=== PATIENT | male | born 1985 | race Caucasian/White ===

== ENCOUNTER 2022-12-11 12:03 | Inpatient (IN) | payer MEDICAID ==
[~2022-12-11] VITALS: Ht 162.6 cm; Wt 91.6 kg
[~2022-12-11 12:03] MED LIST: ACET-8905 PO
[2022-12-11 12:10] VITALS: BP 92/48
[2022-12-11 12:51] LABS: BASOPHILS # (AUTO) 0.2 K/uL (0.00-0.22); BASOPHILS % (AUTO) 1.3 % (0.0-2.0); EOSINOPHILS # (AUTO) 0.2 K/uL (0-0.4); EOSINOPHILS % (AUTO) 1.5 % (0.0-4.0); HEMATOCRIT 38.7 % (36-52); HEMOGLOBIN 13.3 g/dL (12.0-18.0); LYMPHOCYTES # (AUTO) 0.6 K/uL (2.0-11.5); LYMPHOCYTES % (AUTO) 3.7 % (20.5-51.1); MEAN CORPUSCULAR HEMOGLOBIN 37 pg (27-31); MEAN CORPUSCULAR HGB CONC 34 g/dL (33-37); MEAN CORPUSCULAR VOLUME 106.6 fL (80-94); MONOCYTES # (AUTO) 1.1 K/uL (0.8-1.0); MONOCYTES % (AUTO) 7.1 % (1.7-9.3); NEUTROPHILS # (AUTO) 13.8 K/uL (1.8-7.7); NEUTROPHILS % (AUTO) 86.4 % (42.2-75.2); PLATELET COUNT (AUTO) 75 K/uL (140-450); RED BLOOD CELL COUNT(AUTO) 3.63 MIL/uL (4.20-6.10)
[2022-12-11 13:03] LABS: ALBUMIN 1.6 g/dL (3.4-5.0); ANION GAP 14.2 (8-16); CARBON DIOXIDE 21.6 mmol/L (21-32); CREATININE 1.3 mg/dL (0.6-1.3); TOTAL BILIRUBIN 23.2 mg/dL (0.0-1.0)
[2022-12-11 13:07] LABS: POTASSIUM 2.8 mmol/L (3.5-5.1)
[2022-12-11] MEDS ORDERED: NACL 0.9% 1,000 ML IV ONE ×2 (13:10→16:40)
[2022-12-11 13:15] LABS: WHITE BLOOD COUNT (AUTO) 15.9 K/uL (4.8-10.8)
--- NOTE | 2022-12-11 13:45 | NUR ---
a/o times 4, nad, denies any pain, sr on cm, o2 sat 99% ra, sr p times 2
[2022-12-11 14:19] LABS: BILIRUBIN,URINE LARGE (NEGATIVE); BLOOD, URINE TRACE-I (NEGATIVE); LEUKOCYTE ESTERASE ,URINE NEGATIVE (NEGATIVE); NITRITE, URINE NEGATIVE (NEGATIVE); UGLUCOSE 1+ (NEGATIVE)
[2022-12-11 14:52] LABS: MAGNESIUM 2.2 mg/dL (1.8-2.4); PHOSPHORUS 4.5 mg/dL (2.5-4.9)
[2022-12-11] MEDS ORDERED: KCL 20 MEQ/WATER INJ PREMIX 100 ML IV ONE (14:55)
[2022-12-11] MEDS ORDERED: POTASSIUM CHLORIDE 10 MEQ TABER PO ONE (14:55)
--- NOTE | 2022-12-11 15:36 | NUR ---
no ac distress, denies any pain, sr on cm, o2 sat 99% ra, sr up times 2
[2022-12-11 16:26] LABS: COLOR,URINE DARK YELLOW (YELLOW); RBC,URINE 0-5 /HPF (0-5); WBC,URINE 0-5 /HPF (0-5); YEAST,URINE None Seen /HPF (None Seen)
[2022-12-11 16:27] LABS: FINE GRANULAR CASTS,URINE 0-10 /LPF (None Seen); TRICHOMONAS,URINE None Seen /HPF (None Seen)
[2022-12-11 16:28] LABS: APPEARANCE,URINE CLOUDY (CLEAR)
[2022-12-11 17:20] VITALS: BP 132/54
--- NOTE | 2022-12-11 17:20 | NUR ---
RECEIVED PATIENT FROM ER NURSE VIA MERE. PT ADMITTED FOR LIVER CIRRHOSIS. AOX4, ABLE TO MAKE NEEDS KNOWN. ON ROOM AIR AND NO DISTRESS NOTED. SCLERA IS YELLOW. SKIN IS WARM, DRY, JAUNDICE AND INTACT. IV SITE ON LAC 20G SALINE LOCKED. DENIES PAIN AT THE MOMENT. AMBULATORY. PLAN OF CARE DISCUSSED. SAFETY PRECAUTIONS IN PLACE. BED IN LOW POSITION. CALL LIGHT WITHIN REACH. WILL CONTINUE TO MONITOR.
--- NOTE | 2022-12-11 19:25 | NUR ---
RECEIVED PT FROM AM NURSE FOR CONTINUITY OF CARE.PT IS STABLE
--- NOTE | 2022-12-11 19:29 | NUR ---
ENDORSED TO MEDIA SERVICES DIRECTOR NURSE FOR CONTINUITY OF CARE. PT IS STABLE.
[2022-12-11 20:00] VITALS: BP 133/53
[2022-12-11 22:11] LABS: ALBUMIN 1.6 g/dL (3.4-5.0); ANION GAP 11.1 (8-16); CARBON DIOXIDE 24.4 mmol/L (21-32); CREATININE 1.3 mg/dL (0.6-1.3); POTASSIUM 3.5 mmol/L (3.5-5.1); TOTAL BILIRUBIN 20.6 mg/dL (0.0-1.0)
[2022-12-12] VITALS: BP 129/58
--- NOTE | 2022-12-12 01:00 | NUR ---
PATIENT ASLEEP, NO DISTRESS NOTED
[2022-12-12 04:00] VITALS: BP 124/46
--- NOTE | 2022-12-12 07:30 | NUR ---
RECIEVED PATIENT FROM MILK TANKER DRIVER NURSE.PATIENT IS ALERT ,ORIENTED.VITALS ARE STABLE,ALL SAFETY MEASURES IN PLACE.WILL CONTINUE TO MONITOR.
[2022-12-12 08:00] VITALS: BP 139/66
[2022-12-12 10:15] LABS: ALBUMIN 1.6 g/dL (3.4-5.0); ANION GAP 11.6 (8-16); CARBON DIOXIDE 23.9 mmol/L (21-32); CREATININE 1.4 mg/dL (0.6-1.3); POTASSIUM 3.5 mmol/L (3.5-5.1); TOTAL BILIRUBIN 20.4 mg/dL (0.0-1.0)
[2022-12-12 12:00] VITALS: BP 113/42
[2022-12-12 14:46] LABS: BILIRUBIN,DIRECT 12.9 mg/dL (0.0-0.3); TOTAL BILIRUBIN 20.4 mg/dL (0.0-1.0)
[2022-12-12] MEDS: NACL 0.9% 500 ML IV SCH ×2 (14:57→21:30)
--- NOTE | 2022-12-12 15:40 | NUR ---
NOTED TEMPERATURE 99.2,PATIENT COMPLAINS CHILLS.WILL MONITOR FURTHER.
[2022-12-12 16:00] VITALS: BP 115/46
--- NOTE | 2022-12-12 19:30 | NUR ---
endorsed the patient to shift production supervisor nurse,for continuity of care.
--- NOTE | 2022-12-12 19:30 | NUR ---
RECEIVED PT ON BED SLEEPING. PT IS ON STABLE CONDITION, RESPONSIVE ON STIMULI. IV FLUID IS INFUSING WELL AT 75 ML/HR. IV SITE ALIRIO LAC 20G. PT IS ON STANDARD ISOLATION.
[2022-12-12 20:00] VITALS: BP 117/44
[2022-12-13] VITALS: BP 108/45
--- NOTE | 2022-12-13 00:15 | NUR ---
PT IS SLEEPING WELL.
[2022-12-13 04:00] VITALS: BP 132/54
--- NOTE | 2022-12-13 04:00 | NUR ---
PT ABLE TO COLLECT URINE FOR LAB.
[2022-12-13] MEDS: NACL 0.9% 500 ML IV SCH ×2 (04:20→10:50)
--- NOTE | 2022-12-13 04:30 | NUR ---
PT DENIES OF ANY PAIN OR DISCOMFORT.
--- NOTE | 2022-12-13 05:00 | NUR ---
PT IS ASLEEP.
[2022-12-13 05:23] LABS: BASOPHILS # (AUTO) 0.1 K/uL (0.00-0.22); BASOPHILS % (AUTO) 0.6 % (0.0-2.0); EOSINOPHILS # (AUTO) 0.2 K/uL (0-0.4); EOSINOPHILS % (AUTO) 2.4 % (0.0-4.0); HEMATOCRIT 39.1 % (36-52); HEMOGLOBIN 13.5 g/dL (12.0-18.0); LYMPHOCYTES # (AUTO) 0.4 K/uL (2.0-11.5); LYMPHOCYTES % (AUTO) 4.5 % (20.5-51.1); MEAN CORPUSCULAR HEMOGLOBIN 37 pg (27-31); MEAN CORPUSCULAR HGB CONC 35 g/dL (33-37); MEAN CORPUSCULAR VOLUME 107.3 fL (80-94); MONOCYTES # (AUTO) 0.5 K/uL (0.8-1.0); MONOCYTES % (AUTO) 5.1 % (1.7-9.3); NEUTROPHILS # (AUTO) 8.6 K/uL (1.8-7.7); NEUTROPHILS % (AUTO) 87.4 % (42.2-75.2); PLATELET COUNT (AUTO) 69 K/uL (140-450); RED BLOOD CELL COUNT(AUTO) 3.64 MIL/uL (4.20-6.10); RED CELL DISTRIBUTION WIDTH 17.6 % (11.6-13.7); WHITE BLOOD COUNT (AUTO) 9.9 K/uL (4.8-10.8)
[2022-12-13 05:56] LABS: CARBON DIOXIDE 22.6 mmol/L (21-32); CREATININE 1.5 mg/dL (0.6-1.3); POTASSIUM 3.6 mmol/L (3.5-5.1)
--- NOTE | 2022-12-13 07:15 | NUR ---
PT IS ON STABLE CONDITION. PT DENIES OF PAIN OR DISCOMFORT. ALL SAFETY MEASURES ARE IN PLACE. ENDORSED TO DAY SHIFT NURSE FOR CONTINUITY OF CARE.
--- NOTE | 2022-12-13 09:09 | NUR ---
PATIENT HAS BEEN SCREENED AND CATEGORIZED MODERATE NUTRITION RISK. PATIENT WILL BE SEEN WITHIN 3-5 DAYS OF ADMISSION. REVIEWED BY DARYL LARA RD
[2022-12-13 11:54] VITALS: BP 133/57
[2022-12-13] MEDS ORDERED: ALBUMIN HUMAN 25% 100 ML IV SCH (13:00)
[2022-12-13] MEDS: OCTREOTIDE ACETATE 100 MCG/ML VIAL SUBQ SCH ×2 (13:45→17:01)
[2022-12-13] MEDS: POTASSIUM CHL 20MEQ/D5-NS 1,000 ML IV SCH (14:30)
[2022-12-13 16:00] VITALS: BP 133/58
--- NOTE | 2022-12-13 16:00 | NUR ---
DC PLANNING ASSESSMENT COMPLETE SEE ASSESSMENT FOR DETAILS PER PT, DC PLAN IS TO RETURN HOME WITH SISTER PROVIDING TRANSPORTATION WHEN MEDICALLY STABLE. Addendum: 12/13/22 at 1601 by Lilian Ivy SS Amended: Links added.
[2022-12-13 18:22] LABS: CREATININE,URINE RANDOM 76 mg/dL (30-125); URINE SODIUM, RANDOM 4 mmol/l (40-220)
--- NOTE | 2022-12-13 19:23 | NUR ---
RECEIVED PT IN BED AWAKE,ALERT AND ORIENTED X 4. DENIES PAIN. DENIES SHORTNESS OF BREATH. SKIN WARM AND DRY TO TOUCH. BED IN THE LOWEST AND LOCKED POSITION FOR SAFETY, CALL LIGHT IN REACH. ENCOURAGED TO CALL IF ASSISTANCE IS NEEDED, PT VERBALLY AGREED.
[2022-12-13 20:00] VITALS: BP 121/59
[2022-12-13] MEDS: LACTULOSE 20 GM/30 ML UDC PO SCH (20:10)
[2022-12-13 23:48] LABS: CREATININE,URINE RANDOM 78 mg/dL (30-125); URINE SODIUM, RANDOM 3 mmol/l (40-220)
[2022-12-13 23:50] LABS: TOTAL PROTEIN URINE 30.3 MG/DL
[2022-12-14] VITALS: BP 129/55
--- NOTE | 2022-12-14 01:51 | NUR ---
PATIENT IS ASLEEP. BREATHING EVEN AND UNLABORED. CALL LIGHT IN REACH.
[2022-12-14 04:00] VITALS: BP 120/51
[2022-12-14] MEDS: POTASSIUM CHL 20MEQ/D5-NS 1,000 ML IV SCH (05:57)
--- NOTE | 2022-12-14 06:17 | NUR ---
PATIENT IS ASLEEP. NO DISTRESS NOTED. ALL NEEDS ATTENDED TO. SAFETY PRECAUTIONS MAINTAINED DURING THE SHIFT, CALL LIGHT REMAINS WITHIN REACH.
[2022-12-14 06:20] LABS: HEPATITIS A ANTIBODY IGM Negative (Negative); HEPATITIS B CORE AB TOTAL Negative (Negative); HEPATITIS B SURFACE ANTIBODY Reactive (.); HEPATITIS B SURFACE ANTIGEN Negative (Negative)
[2022-12-14 07:04] LABS: HEMATOCRIT 34.1 % (36-52); HEMOGLOBIN 11.9 g/dL (12.0-18.0); MEAN CORPUSCULAR HEMOGLOBIN 38 pg (27-31); MEAN CORPUSCULAR HGB CONC 35 g/dL (33-37); MEAN CORPUSCULAR VOLUME 107.8 fL (80-94); PLATELET COUNT (AUTO) 48 K/uL (140-450); RED BLOOD CELL COUNT(AUTO) 3.17 MIL/uL (4.20-6.10); RED CELL DISTRIBUTION WIDTH 17.7 % (11.6-13.7); WHITE BLOOD COUNT (AUTO) 11.4 K/uL (4.8-10.8)
[2022-12-14 07:08] LABS: ANION GAP 11.7 (8-16); CARBON DIOXIDE 23.1 mmol/L (21-32); CREATININE 1.7 mg/dL (0.6-1.3); POTASSIUM 3.8 mmol/L (3.5-5.1)
[2022-12-14 07:50] LABS: EOSINOPHILS % (MANUAL) 1 % (0-4); LYMPHOCYTES % (MANUAL) 4 % (20-46); MONOCYTES % (MANUAL) 12 % (5-12)
[2022-12-14 08:00] VITALS: BP 137/63
[2022-12-14] MEDS: LACTULOSE 20 GM/30 ML UDC PO SCH (08:57)
[2022-12-14] MEDS: OCTREOTIDE ACETATE 100 MCG/ML VIAL SUBQ SCH ×2 (08:58→13:00)
[2022-12-14] MEDS ORDERED: THIAMINE 100 MG TAB PO SCH (09:00)
[2022-12-14] MEDS ORDERED: MULTIVITAMIN 1 TAB PO SCH (09:00)
[2022-12-14] MEDS ORDERED: prednisoLONE 15 MG/5 ML UDC PO SCH (09:00)
[2022-12-14] MEDS ORDERED: AMOX-999 PO (10:18)
[2022-12-14] MEDS ORDERED: FURO-570 PO (10:21)
[2022-12-14] MEDS ORDERED: SPIR25TA PO (10:21)
[2022-12-14 12:00] VITALS: BP 158/72
[2022-12-14] MEDS ORDERED: PIPERACILLIN/TAZOBACTAM 3.375 GM in DEXTROSE 5% 50 ML IV SCH (12:00)
[2022-12-14 13:59] VITALS: BP 120/51
--- NOTE | 2022-12-14 15:10 | NUR ---
PATIENT DISCHARGED HOME. PERSONAL BELONGINGS SENT HOME WITH PATIENT. STABLE UPON DISCHARGE.
[2022-12-15] MEDS ORDERED: FUROSEMIDE 40 MG TAB PO SCH (09:00)
[2022-12-15] MEDS ORDERED: SPIRONOLACTONE 25 MG TAB PO SCH (09:00)
== END 2022-12-14 14:45 | disposition home or self-care (01) | DRG 280 ==
LOC: MED 12:03 → MTU 16:43
PROVIDERS: ADMIT Family Medicine; ATTEND Family Medicine
DX: K70.31 Alcoholic cirrhosis of liver with ascites (principal); N17.0 Acute kidney failure with tubular necrosis; K76.7 Hepatorenal syndrome; E43 Unspecified severe protein-calorie malnutrition; K76.6 Portal hypertension; E83.51 Hypocalcemia; E87.1 Hypo-osmolality and hyponatremia; E87.6 Hypokalemia; Z20.822 Contact with and (suspected) exposure to COVID-19; R74.01 Elevation of levels of liver transaminase levels; Z79.891 Long term (current) use of opiate analgesic; Z79.1 Long term (current) use of non-steroidal anti-inflammatories (NSAID); Z79.899 Other long term (current) drug therapy; Z68.34 Body mass index [BMI] 34.0-34.9, adult; D72.825 Bandemia
CPT/HCPCS: 36415; 76705; 80048; 80053; 81001; 82140; 82247; 82248; 82436; 82570; 83036; 83690; 83735; 84100; 84156; 84300; 85025; 86704; 86706; 86708; 86709; 86803; 87081; 87086; 87340; 96361; 96365; 99291; J2354; J2543; J3480; J7060; J7510; P9046; Q0092; Q9967

== ENCOUNTER 2022-12-16 16:24 | Inpatient (IN) | payer MEDICAID ==
[~2022-12-16] VITALS: Ht 162.6 cm; Wt 89.8 kg
[~2022-12-16 16:24] MED LIST changes: -ACET-8905 PO; +AMOX-999 PO; +FURO-570 PO; +SPIR25TA PO
[2022-12-16 16:44] VITALS: BP 116/58
--- NOTE | 2022-12-16 16:44 | NUR ---
37 y/o male bib self, c/o abd distention, body pain, restless, unable to sleep and sob for "months". pt a&ox4, ambulates with steady gait, setswana speaking. skin jaudice/warm/dry. abd sounds x4, round/firm/distention. pmh: jaundice nka med: denies
--- NOTE | 2022-12-16 17:37 | NUR ---
DR ALEJANDRO AT BEDSIDE.
[2022-12-16 18:07] LABS: HEMATOCRIT 35.6 % (36-52); HEMOGLOBIN 12.1 g/dL (12.0-18.0); MEAN CORPUSCULAR HEMOGLOBIN 37 pg (27-31); MEAN CORPUSCULAR HGB CONC 34 g/dL (33-37); MEAN CORPUSCULAR VOLUME 109.7 fL (80-94); PLATELET COUNT (AUTO) 30 K/uL (140-450); RED BLOOD CELL COUNT(AUTO) 3.25 MIL/uL (4.20-6.10); RED CELL DISTRIBUTION WIDTH 18.2 % (11.6-13.7); WHITE BLOOD COUNT (AUTO) 24.3 K/uL (4.8-10.8)
[2022-12-16 18:30] LABS: ALBUMIN 1.7 g/dL (3.4-5.0); ANION GAP 22.4 (8-16); CARBON DIOXIDE 16.2 mmol/L (21-32); POTASSIUM 4.6 mmol/L (3.5-5.1); TOTAL BILIRUBIN 24.5 mg/dL (0.0-1.0)
[2022-12-16 18:36] LABS: LYMPHOCYTES % (MANUAL) 1 % (20-46)
[2022-12-16 18:39] LABS: CREATININE 4.4 mg/dL (0.6-1.3)
[2022-12-16] MEDS ORDERED: NACL 0.9% 1,000 ML IV ONE ×2 (18:50→20:00)
--- NOTE | 2022-12-16 19:17 | NUR ---
GAVE REPORT TO DAVID MERIDA.
[2022-12-16] MEDS ORDERED: MORPHINE SULFATE 4 MG/ML SYR IVP ONE (19:25)
--- NOTE | 2022-12-16 20:50 | NUR ---
PT DENIES PAIN AT THIS TIME.
--- NOTE | 2022-12-16 21:50 | NUR ---
Patient will be admitted to care of . Admited to TELE. Will go to [id number]. Belongings list completed. Report to REYES.
--- NOTE | 2022-12-16 22:15 | NUR ---
RECEIVED PATIENT FROM ER [facility]IA [facility]. PT ALERT ORIENTED X 4. PIV INTACT AND PATENT, NO COMPLAIN OF PAIN AT THIS TIME
[2022-12-17] VITALS (11 sets, daily range): BP systolic 91–122; BP diastolic 33–50
--- NOTE | 2022-12-17 01:00 | NUR ---
PATIENT ASLEEP, ALL SAFETY MEASURES IN PLACE,CALL LIGHT WITHIN EASY REACH
[2022-12-17 07:16] LABS: BASOPHILS % (AUTO) 0.1 % (0.0-2.0); EOSINOPHILS # (AUTO) 0.9 K/uL (0-0.4); EOSINOPHILS % (AUTO) 4.4 % (0.0-4.0); HEMATOCRIT 31.8 % (36-52); HEMOGLOBIN 10.7 g/dL (12.0-18.0); LYMPHOCYTES # (AUTO) 0.4 K/uL (2.0-11.5); LYMPHOCYTES % (AUTO) 2.1 % (20.5-51.1); MEAN CORPUSCULAR HEMOGLOBIN 37 pg (27-31); MEAN CORPUSCULAR HGB CONC 34 g/dL (33-37); MEAN CORPUSCULAR VOLUME 109.6 fL (80-94); MONOCYTES # (AUTO) 0.4 K/uL (0.8-1.0); MONOCYTES % (AUTO) 1.7 % (1.7-9.3); NEUTROPHILS # (AUTO) 19.8 K/uL (1.8-7.7); NEUTROPHILS % (AUTO) 91.7 % (42.2-75.2); RED BLOOD CELL COUNT(AUTO) 2.91 MIL/uL (4.20-6.10); RED CELL DISTRIBUTION WIDTH 18.5 % (11.6-13.7); WHITE BLOOD COUNT (AUTO) 21.6 K/uL (4.8-10.8)
[2022-12-17 07:23] LABS: PLATELET COUNT (AUTO) 19 K/uL (140-450)
[2022-12-17 07:26] LABS: ANION GAP 22.1 (8-16); CARBON DIOXIDE 13.5 mmol/L (21-32); POTASSIUM 4.6 mmol/L (3.5-5.1)
[2022-12-17 07:48] LABS: CREATININE 4.8 mg/dL (0.6-1.3)
[2022-12-17] MEDS ORDERED: DEXTROSE 50% 50 ML SYR IVP ONE ×2 (07:50→20:05)
--- NOTE | 2022-12-17 08:01 | NUR ---
12/17/2022 0735: RECEIVED PT FROM LISA MERIDA. PT RESTING IN BED NO GUARDING OR GRIMACING NOTED. NO ACUTE DISTRESS AT THIS TIME. [id number].
[2022-12-17] MEDS ORDERED: DEXTROSE 50% 50 ML SYR IVP PRN (08:45)
[2022-12-17] MEDS ORDERED: RENAL DOSING PER PHARMACY MC PRN (09:00)
--- NOTE | 2022-12-17 09:10 | NUR ---
PATIENT HAS BEEN SCREENED AND CATEGORIZED LOW NUTRITION RISK. PATIENT WILL BE SEEN WITHIN 7 DAYS OF ADMISSION. 12/23/22 REVIEWED BY DARYL LARA RD
[2022-12-17] MEDS ORDERED: ONDANSETRON 4 MG/2 ML VIAL IVP PRN (10:50)
[2022-12-17] MEDS ORDERED: HYDROcodone/APAP 7.5/325 MG 1 TAB PO PRN (10:50)
[2022-12-17] MEDS ORDERED: ACETAMINOPHEN 325 MG TAB PO PRN (10:50)
[2022-12-17] MEDS ORDERED: MAG SULF 2000 MG/WATER PREMIX 50 ML IV PRN (10:50)
[2022-12-17] MEDS ORDERED: POTASSIUM CHLORIDE 10 MEQ TABER PO PRN (10:50)
[2022-12-17] MEDS ORDERED: ALBUMIN HUMAN 25% 50 ML IV SCH (11:00)
[2022-12-17 12:51] LABS: AMYLASE 105 U/L (25-115); FREE T4 (FREE THYROXINE) 0.49 ng/dL (0.76-1.46); PHOSPHORUS 7.4 mg/dL (2.5-4.9); THYROID STIMULATING HORMONE 0.02 uIU/mL (0.34-3.74); TRIGLYCERIDES 23 mg/dL (30-150)
[2022-12-17] MEDS: PIPERACILLIN/TAZOBACTAM 2.25 GM in DEXTROSE 5% 50 ML IV SCH ×2 (13:00→21:00)
[2022-12-17] MEDS ORDERED: PIPERACILLIN/TAZOBACTAM 3.375 GM in DEXTROSE 5% 50 ML IV SCH ×4 (13:00)
[2022-12-17 13:41] LABS: HDL CHOLESTEROL 8 mg/dL (40-60); LIPASE 2516 U/L (73-393)
--- NOTE | 2022-12-17 13:47 | NUR ---
12/17/2022 13:47: CRITICAL LACTIC ACID 6.6. TEXT TO DR ROSADO. [id number].
[2022-12-17] MEDS ORDERED: DEXTROSE 10% 1,000 ML IV SCH (14:10)
--- NOTE | 2022-12-17 16:01 | NUR ---
DC PLANNING ASSESSMENT COMPLETE SEE ASSESSMENT FOR DETAILS PER PT, DC PLAN IS TO RETURN HOME WITH SISTER PROVIDING TRANSPORTATION WHEN MEDICALLY STABLE. Addendum: 12/17/22 at 1602 by Lilian WEST Amended: Links added.
[2022-12-17] MEDS ORDERED: LACTULOSE 20 GM/30 ML UDC PO SCH (17:55)
[2022-12-17] MEDS: MIDODRINE 5 MG TAB PO SCH ×2 (19:00→20:04)
--- NOTE | 2022-12-17 19:00 | NUR ---
12/17/20221899: REPORT GIVEN TO VEENA MERIDA ICU. [id number].
--- NOTE | 2022-12-17 19:01 | NUR ---
RECEIVED TELEPHONE REPORT FROM FUAD BROOKE, FOR CONTINUITY OF CARE.
--- NOTE | 2022-12-17 19:15 | NUR ---
ENDORSED BEDSIDE REPORT TO JESI, DIGITAL MEDIA BUYER RN, FOR CONTINUITY OF CARE.
[2022-12-17] MEDS ORDERED: ROCURONIUM 50 MG/5 ML VIAL IV SCH (19:40)
[2022-12-17] MEDS ORDERED: ETOMIDATE 20 MG/10 ML VIAL IVP SCH (19:40)
[2022-12-17] MEDS ORDERED: NOREPINEPHRINE 4 MG in DEXTROSE 5% 250 ML IV PRN (20:05)
[2022-12-17] MEDS ORDERED: PROPOFOL 1000 MG/100 ML PREMIX 100 ML IV PRN (20:05)
[2022-12-17] MEDS: ALBUMIN HUMAN 25% 100 ML IV SCH ×2 (20:08→21:30)
[2022-12-17] MEDS ORDERED: DEXTROSE 50% 50 ML SYR IVP SCH (20:09)
[2022-12-17] MEDS: OCTREOTIDE ACETATE 100 MCG/ML VIAL SUBQ SCH (20:09)
[2022-12-17] MEDS: DEXTROSE 5% 1,000 ML IV SCH (20:43)
--- NOTE | 2022-12-17 20:48 | NUR ---
CALLED DR. BANDA EXCHANGE TO GET A TELEPHONE CONSENT FOR PICC LINE INSERTION. DR. BANDA CALLED BACK AND STATED "OKAY". NORIS PICC LINE NURSE IS HERE TO DO THE PICC LINE.
[2022-12-17] MEDS ORDERED: DOCUSATE SODIUM 100 MG GELCAP PO SCH (21:00)
[2022-12-17] MEDS ORDERED: methylPREDNISolone SS 40 MG/ML VIAL IVP SCH (21:00)
[2022-12-17] MEDS: RIFAXIMIN 550 MG TAB PO SCH (21:00)
--- NOTE | 2022-12-17 21:01 | NUR ---
12/17/2022 13:50: CRITICAL LAB LACTIC ACID 6.6 RECEIVED FROM LAB. TEXT REPORT TO DR ROSADO. [id number].
--- NOTE | 2022-12-17 21:06 | NUR ---
12/17/20225: PT GETTING CONFUSED TEXT DR ROSADO TO GET SOMETHING FOR HIM, SHE ORDERED AN ABG. ORDERS RECEVIED AND EXECUTED. ABG RESULTS SENT TO DR ROSADO VIA A PICTURE. RT LISA TEXT DR ROSADO ASKED WHAT WE SHOULD DO BICARB OR INTUBATE. DR ROSADO TEXT INTUBATE, CONSULT DR MCMILLAN. DR MCMILLAN NOTIFIED BUT STATED SHE WAS NOT FIELD BROOMER THAT SHE WOULD CONTACT DR INFANTE. DR INFANTE CALLED THE [facility] AND OKAYED FOR PT TO BE TRANSFERRED TO ICU, AND WOULD INTUBATE THERE. REPORT CALLED TO VEENA RN, PT TRANSFERRED TO ICU. [id number].
[2022-12-17 21:16] LABS: APPEARANCE,URINE CLEAR (CLEAR); BILIRUBIN,URINE 3+ (NEGATIVE); BLOOD, URINE 1+ (NEGATIVE); COLOR,URINE YELLOW (YELLOW); LEUKOCYTE ESTERASE ,URINE NEGATIVE (NEGATIVE); NITRITE, URINE NEGATIVE (NEGATIVE); PH,URINE 6.5 (5.0-9.0); UGLUCOSE TRACE (NEGATIVE)
--- NOTE | 2022-12-17 21:23 | NUR ---
1999 PATIENT INTUBATED WITH 8.0 TUBE AT 24 LIP. STATED TO PULL BACK TUBE TO 1CM. TUBE IS AT 23 LIP NOW. PT PLACED ON CARESCAPE VENT AC 24 VT 450 PEEP 5 FIO2 100%. ABG PENDING
--- NOTE | 2022-12-17 21:26 | NUR ---
2100 ABG DRAWN AND RESULTS GIVEN TO RN. RN TEXTED DR RESULTS.
[2022-12-17] MEDS ORDERED: SODIUM BICARBONATE 8.4% PFS 50 MEQ/50 ML SYR IVP SCH (21:40)
[2022-12-17 21:41] LABS: BARBITURATE, URINE NEGATIVE ng/ml (NEG <=200); BENZODIAZEPINE, URINE NEGATIVE ng/mL (NEG <=200); CANNABINOID, URINE NEGATIVE ng/mL (NEG <=50); COCAINE, URINE NEGATIVE ng/mL (NEG <=300); OPIATE, URINE NEGATIVE ng/mL (NEG <=2000); PHENCYCLIDINE SCREEN,URINE NEGATIVE ng/mL (NEG <=25)
--- NOTE | 2022-12-17 21:44 | NUR ---
2130 SXNED FOR SPUTUM SAMPLE. NO SECRETIONS AT THIS TIME
--- NOTE | 2022-12-17 21:45 | NUR ---
[address] CHAN SAID INCREASE RESPIRATORY RATE TO 28
[2022-12-17] MEDS: LACTULOSE 20 GM/30 ML UDC PO SCH (21:59)
[2022-12-17] MEDS ORDERED: MEROPENEM 1,000 MG VIAL IV ONE (22:10)
--- NOTE | 2022-12-17 23:15 | NUR ---
2255 LOWERED FIO2 TO 80%. SATS 100%
[2022-12-18] VITALS (22 sets, daily range): BP systolic 55–115; BP diastolic 26–84
[2022-12-18] MEDS ORDERED: NOREPINEPHRINE 4 MG/4 ML VIAL IV ONE ×2 (01:24→07:46)
[2022-12-18] MEDS: PIPERACILLIN/TAZOBACTAM 2.25 GM in DEXTROSE 5% 50 ML IV SCH ×2 (05:00→12:18)
[2022-12-18] MEDS: LACTULOSE 20 GM/30 ML UDC PO SCH ×2 (05:00→12:16)
[2022-12-18 06:22] LABS: ANION GAP 22.8 (8-16); CARBON DIOXIDE 15.3 mmol/L (21-32)
[2022-12-18 06:26] LABS: MAGNESIUM 2.7 mg/dL (1.8-2.4)
[2022-12-18] MEDS ORDERED: LEVOTHYROXINE 0.05 MG TAB PO SCH (06:30)
[2022-12-18] MEDS: DEXTROSE 5% 1,000 ML IV SCH (06:33)
[2022-12-18 06:34] LABS: CREATININE 6.6 mg/dL (0.6-1.3); POTASSIUM 6.1 mmol/L (3.5-5.1)
--- NOTE | 2022-12-18 06:35 | NUR ---
LAB CALLED FOR PT. K LEVEL 6.1, BUN 87, CREATININE 6.6 AND PHOS 10.4. BUT ACCORDING TO LAB THEY WILL REPEAT THE PHOS. I REPORTED TO DR. BANDA THE LAB RESULT AND NEW ORDER MADE. ENDORSED TO THE NEXT SHIFT.
[2022-12-18] MEDS: MIDODRINE 5 MG TAB PO SCH ×2 (06:56→12:15)
[2022-12-18 07:01] LABS: PHOSPHORUS 10.5 mg/dL (2.5-4.9)
[2022-12-18] MEDS ORDERED: PHENYLEPHRINE 10 MG in NACL 0.9% 250 ML IV PRN (07:25)
[2022-12-18] MEDS ORDERED: VASOPRESSIN 20 UNITS in NACL 0.9% 250 ML IV SCH ×2 (07:25→08:40)
--- NOTE | 2022-12-18 07:25 | NUR ---
REPORT RECEIVED FROM JESI MERIDA, ALL CARES ASSUMED.
[2022-12-18] MEDS ORDERED: VASOPRESSIN 20 UNITS/ML VIAL ONE (07:32)
[2022-12-18] MEDS ORDERED: NOREPINEPHRINE 8 MG in DEXTROSE 5% 250 ML IV PRN (07:55)
--- NOTE | 2022-12-18 08:05 | NUR ---
PT RESTING IN BED WITH EYES OPEN, NOT TRACKING. PT INTUBATED, SEDATED. ETT TO VENT AC 24, 450, 100%, 5. OGT CLAMPED. ROBINSON PICC AND 20G LFA IV FLUSH WELL, BLOOD RETURN NOTED. SHORT CATHETER TO GRAVITY; SCANT, TEA COLORED URINE DRAINING. SKIN IS JAUNDICE WITH SCATTERED BRUISING ON EXTREMITIES AND TORSO. SCLERA IS JAUNDICE WELL. BED IN LOW AND LOCKED POSITION.
--- NOTE | 2022-12-18 08:05 | NUR ---
BP TRENDING BELOW NORMAL. RECEIVED TELEPHONE ORDERS FROM DR. BANDA FOR ADDITIONAL PRESSORS. DISCUSSED LAB RESULTS AND RECEIVED TELEPHONE ORDERS FROM DR. RODRIGES.
[2022-12-18 08:30] LABS: BASOPHILS # (AUTO) 0.1 K/uL (0.00-0.22); BASOPHILS % (AUTO) 0.3 % (0.0-2.0); EOSINOPHILS # (AUTO) 0.5 K/uL (0-0.4); HEMATOCRIT 28.6 % (36-52); HEMOGLOBIN 9.5 g/dL (12.0-18.0); LYMPHOCYTES # (AUTO) 0.4 K/uL (2.0-11.5); LYMPHOCYTES % (AUTO) 1.4 % (20.5-51.1); MEAN CORPUSCULAR HEMOGLOBIN 38 pg (27-31); MEAN CORPUSCULAR HGB CONC 33 g/dL (33-37); MEAN CORPUSCULAR VOLUME 113.5 fL (80-94); MONOCYTES # (AUTO) 0.3 K/uL (0.8-1.0); NEUTROPHILS # (AUTO) 24.3 K/uL (1.8-7.7); NEUTROPHILS % (AUTO) 95.3 % (42.2-75.2); RED BLOOD CELL COUNT(AUTO) 2.52 MIL/uL (4.20-6.10); RED CELL DISTRIBUTION WIDTH 18.4 % (11.6-13.7)
[2022-12-18] MEDS ORDERED: VASOPRESSIN 40 UNITS in NACL 0.9% 250 ML IV SCH (08:30)
[2022-12-18 08:36] LABS: PLATELET COUNT (AUTO) 15 K/uL (140-450); WHITE BLOOD COUNT (AUTO) 25.5 K/uL (4.8-10.8)
[2022-12-18] MEDS ORDERED: NOREPINEPHRINE 16 MG in DEXTROSE 5% 250 ML IV PRN (08:40)
[2022-12-18] MEDS ORDERED: CALCIUM GLUC 1 GM/50 mL NS BAG 50 ML IV SCH (08:55)
[2022-12-18] MEDS ORDERED: INSULIN REGULAR, HUMAN 100 UNIT/ML VIAL IV SCH (08:55)
[2022-12-18] MEDS ORDERED: DEXTROSE 50% 50 ML SYR IVP SCH (08:55)
--- NOTE | 2022-12-18 08:56 | NUR ---
RECEIVED PHONE CALL FROM DR. RODRIGES, ORDERS RECEIVED.
[2022-12-18] MEDS ORDERED: SPIRONOLACTONE 25 MG TAB PO SCH (09:00)
[2022-12-18] MEDS ORDERED: PANTOPRAZOLE 40 MG INJ VIAL IVP SCH (09:00)
[2022-12-18] MEDS ORDERED: FUROSEMIDE 40 MG TAB PO SCH (09:00)
[2022-12-18] MEDS ORDERED: DOCUSATE 100 MG/10 ML UDC GT SCH (09:00)
[2022-12-18] MEDS ORDERED: SODIUM BICARBONATE 8.4% 150 MEQ in DEXTROSE 5% 1,000 ML IV SCH (09:30)
[2022-12-18 09:33] LABS: PROTHROMBIN TIME 89.7 secs (10.8-13.4)
[2022-12-18] MEDS: RIFAXIMIN 550 MG TAB PO SCH (09:36)
[2022-12-18] MEDS: OCTREOTIDE ACETATE 100 MCG/ML VIAL SUBQ SCH ×2 (09:42→12:15)
[2022-12-18] MEDS: SODIUM ZIRCONIUM CYCLOSILICATE 10 GM POWD.PACK PO SCH ×2 (09:44→12:17)
[2022-12-18] MEDS ORDERED: FUROSEMIDE 40 MG/4 ML VIAL IVP ONE (09:53)
[2022-12-18] MEDS ORDERED: FUROSEMIDE 20 MG/2 ML VIAL IVP SCH (10:15)
[2022-12-18] MEDS: PHENYLEPHRINE 40 MG in NACL 0.9% 250 ML IV PRN ×2 (10:56→15:38)
[2022-12-18] MEDS ORDERED: EPINEPHrine 1 mg/mL 1 MG in DEXTROSE 5% 250 ML IV PRN (11:05)
[2022-12-18] MEDS ORDERED: EPINEPHrine 1 mg/mL 6 MG in DEXTROSE 5% 250 ML IV PRN (11:10)
--- NOTE | 2022-12-18 11:30 | NUR ---
DR BANDA ROUNDING AT BEDSIDE, DISCUSSED PLAN OF CARE WITH FAMILY. A DNR HAS BEEN SIGNED BY DR. BANDA AND SISTER OF PT, ANGIE.
[2022-12-18] MEDS ORDERED: HYDROCORTISONE NA SUCC 100 MG/2 ML VIAL IV SCH (12:00)
[2022-12-18] MEDS: ALBUMIN HUMAN 25% 100 ML IV SCH (12:08)
--- NOTE | 2022-12-18 12:15 | NUR ---
DR. DE LA TORRE ROUNDING AT BEDSIDE, DISCUSSED PLAN OF CARE WITH FAMILY. UPDATE GIVEN TO DR. DE LA TORRE. PT MAXED OUT ON ALL PRESSORS. VITAL SIGNS CONTINUE TO TREND DOWN. NO NEW ORDERS FROM DR. DE LA TORRE AT THIS TIME.
--- NOTE | 2022-12-18 16:50 | NUR ---
PRONOUNCEMENT MONITOR SHOWED ASYSTOLE. NO PULSES PALPATED OR FOUND WITH DOPPLER. NO BP DETECTABLE. PUPILS FIXED AND DILATED. [facility] PRONOUNCED AT 1647. FAMILY AT BEDSIDE.
--- NOTE | 2022-12-18 17:12 | NUR ---
PHONE CALL TO [facility], CASE #[id number]. NOTIFIED [facility] WILL NOT PURSUE ORGAN DONATION.
--- NOTE | 2022-12-18 17:18 | NUR ---
PHONE CALL TO SOLDERING TECHNICIAN, , TO NOTIFY OF PT EXPIRATION. AWAITING RETURN PHONE CALL.
--- NOTE | 2022-12-18 18:29 | NUR ---
RECEIVED PHONE CALL BACK FROM [facility] [employer], NAPOLEON DYKES, WHO NOTIFIED US THAT THE BODY WILL BE RELEASED.
--- NOTE | 2022-12-18 19:15 | NUR ---
RECEIVED PT IN A DECESED STATE, WAITING FOR FAMILY TO CHOOSE A MORTUARY. FAMILY IS OUTSIDE NOW DUE TO CHANGE OF SHIFT. CT CLEANED UP. ALL TUBES REMOVED. PLACED IN A BODY BAG. WITING FOR FMILY TO RETURN.
--- NOTE | 2022-12-18 20:00 | NUR ---
CALLED FAMILY BECAUSE THEY LEFT THE HOSPITAL WITHOUT CHOOSING A MORTUARY. STATE THEY WILL CALL BACK.
--- NOTE | 2022-12-18 21:00 | NUR ---
ANGIE CALLED BACK AND MARIA FERNANDA CALL BACK AND SAID HE'D SPEAK WITH THE FAMILY AND CALL BACK.
--- NOTE | 2022-12-18 22:46 | NUR ---
MARIA FERNANDA THE SON OF RHE CALL BACK AND SPOKE WITH JESI SIMONS GAVE THE NAME OF THE MORTUARY.
--- NOTE | 2022-12-18 22:51 | NUR ---
DIO CALLED , A VOICE MAIL WAS RECEIVED LEFT A MESSAGE THAT THE FAMILY HAD CHOSEN THEIR SERVICE. i LEFT THE PT 'S NAME AND LOCATION AND ASK IF THEY COULD CALL BACK WITH THE TIME THEY WOULD BE PICKING UP THE
--- NOTE | 2022-12-18 22:56 | NUR ---
[facility] CALLED BACK. THEY GAVE AN ERA OF 3O MINUTES. Addendum: 12/19/22 at 0012 by [facility] 10 FUAD RN ERA SHOULD BE ETA.
--- NOTE | 2022-12-18 23:30 | NUR ---
PT PICKED UP BY THE MORTUARY ATTENDANT.
== END 2022-12-18 16:47 | DRG 720 ==
LOC: MED 16:24 → MTU 20:01 → MIC 12-17 19:17
PROC: 0BH17EZ Insertion of Endotracheal Airway into Trachea, Via Natural or Artificial Opening (ICD-10-PCS; principal; 2022-12-17)
PROC: 5A1935Z Respiratory Ventilation, Less than 24 Consecutive Hours (ICD-10-PCS; 2022-12-17)
PROC: 02HV33Z Insertion of Infusion Device into Superior Vena Cava, Percutaneous Approach (ICD-10-PCS; 2022-12-17)
PROC: B548ZZA Ultrasonography of Superior Vena Cava, Guidance (ICD-10-PCS; 2022-12-17)
DX: A41.9 Sepsis, unspecified organism (principal); K76.7 Hepatorenal syndrome; N17.0 Acute kidney failure with tubular necrosis; J96.01 Acute respiratory failure with hypoxia; J69.0 Pneumonitis due to inhalation of food and vomit; K70.40 Alcoholic hepatic failure without coma; E43 Unspecified severe protein-calorie malnutrition; E87.20 Acidosis, unspecified; K85.90 Acute pancreatitis without necrosis or infection, unspecified; K70.31 Alcoholic cirrhosis of liver with ascites; Z66 Do not resuscitate; I46.9 Cardiac arrest, cause unspecified; D69.6 Thrombocytopenia, unspecified; K76.82 Hepatic encephalopathy; E87.1 Hypo-osmolality and hyponatremia; K70.11 Alcoholic hepatitis with ascites; F17.200 Nicotine dependence, unspecified, uncomplicated; K86.1 Other chronic pancreatitis; E03.9 Hypothyroidism, unspecified; E87.5 Hyperkalemia; E87.70 Fluid overload, unspecified; E16.2 Hypoglycemia, unspecified; D68.4 Acquired coagulation factor deficiency; Z79.891 Long term (current) use of opiate analgesic; Z79.899 Other long term (current) drug therapy; Z68.34 Body mass index [BMI] 34.0-34.9, adult; Z91.199 Patient's noncompliance with other medical treatment and regimen due to unspecified reason
CPT/HCPCS: 31500; 36415; 36600; 71045; 76705; 80048; 80053; 80305; 81001; 82140; 82150; 82803; 82948; 83036; 83605; 83690; 83735; 83880; 84100; 84439; 84443; 84484; 85025; 85610; 85730; 87040; 87081; 87086; 94002; 94003; 96360; 99285; C9113; J0171; J0610; J1720; J1815; J1940; J2185; J2354; J2370; J2543; J2704; J2920; J3490; J7030; J7060; P9046; Q0092